=== PATIENT | male | born 1960 | race Two or more races ===

== ENCOUNTER 2020-05-28 01:55 | Emergency (ER) | payer OTHER ==
[~2020-05-28] VITALS: Ht 165.1 cm; Wt 113.4 kg
[2020-05-28] MEDS ORDERED: oxyCODONE/APAP (5/325 MG) 1 UDTAB TABLET ONE (02:07)
--- NOTE | 2020-05-28 02:10 | NUR ---
XRAY AT BEDSIDE
[2020-05-28] MEDS ORDERED: oxyCODONE/APAP (5/325 MG) 1 UDTAB TABLET PO ONE (02:30)
[2020-05-28] MEDS ORDERED: KETOROLAC TROMETHAMINE INJ 60 MG/2 ML VIAL IM ONE ×2 (03:18→03:30)
[2020-05-28 03:27] VITALS: BP 141/87
== END 2020-05-28 03:29 | disposition home or self-care (01) ==
LOC: ER 01:57
DX: S52.572A Other intraarticular fracture of lower end of left radius, initial encounter for closed fracture (principal); S52.692A Other fracture of lower end of left ulna, initial encounter for closed fracture; Z90.89 Acquired absence of other organs; W10.8XXA Fall (on) (from) other stairs and steps, initial encounter; Y93.89 Activity, other specified; Y92.89 Other specified places as the place of occurrence of the external cause; Y99.8 Other external cause status
CPT/HCPCS: 73090; 73110; 73120; 96372; 99284; J1885